=== PATIENT | male | born 1945 | race Caucasian/White ===

== ENCOUNTER 2024-05-21 12:25 | Emergency (ER) | payer OTHER ==
[2024-05-21] MEDS ORDERED: Sodium Chloride 0.9% 10 ML Syringe FLUSH PRN (13:05)
[2024-05-21 13:19] LABS: EOSINOPHILS ABSOLUTE AUTO 0.02 K/uL (0.00-0.50); EOSINOPHILS PERCENT AUTO 0.2 % (0.0-5.0); HEMATOCRIT 26.6 % (39.0-49.0); LYMPHOCYTES ABSOLUTE AUTO 0.38 K/uL (0.50-3.50); LYMPHOCYTES PERCENT AUTO 4.6 % (10.0-50.0); MEAN CORPUSCULAR HEMOGLOBIN 30.6 pg (28.2-33.3); MEAN CORPUSCULAR HGB CONC 33.8 g/dL (31.7-36.0); MEAN CORPUSCULAR VOLUME 90.5 fL (84.0-98.0); MONOCYTES ABSOLUTE AUTO 0.55 K/uL (0.00-1.00); MONOCYTES PERCENT AUTO 6.6 % (2.0-14.0); NEUTROPHILS ABSOLUTE AUTO 7.34 K/uL (1.40-7.00); NEUTROPHILS PERCENT AUTO 88.6 % (45.0-80.0); PLATELET COUNT,PLT 273 K/uL (150-350); RED BLOOD CELL COUNT 2.94 M/uL (4.33-5.41); RED CELL DISTRIBUTION WIDTH 15.1 % (11.2-14.1); WHITE BLOOD CELL COUNT,WBC 8.3 K/uL (4.0-10.2)
[2024-05-21 13:35] VITALS: BP 153/82; PULSE 66
[2024-05-21 13:40] LABS: INR 1.8 (0.9-1.1); PROTHROMBIN TIME 17.1 SEC (9.0-11.1)
[2024-05-21 13:43] LABS: LACTIC ACID 0.6 mmol/L (0.4-2.0)
[2024-05-21 13:57] LABS: ALBUMIN 2.5 g/dL (3.4-5.0); ANION GAP 9.4 meq/L (7-15); BILIRUBIN TOTAL 0.4 mg/dL (0.2-1.0); C-REACTIVE PROTEIN 10.99 mg/dL (0.05-0.30); CALCIUM 8.5 mg/dL (8.5-10.1); CARBON DIOXIDE,CO2 28.6 mmol/L (21.0-32.0); CREATININE 1.72 mg/dL (0.51-1.17); EST CRCL DRUG DOSING (CG) 39.83 mL/min; MAGNESIUM 1.5 mg/dL (1.8-2.4); POTASSIUM,K 3.5 mmol/L (3.5-5.1); PROTEIN TOTAL,TP 6.3 g/dL (6.4-8.2)
[2024-05-21] MEDS: 50% Dextrose in Water 50 ML Syringe IV ONE (14:21)
[2024-05-21] MEDS ORDERED: Naloxone 0.4 MG/ML SDV IVPUSH PRN (14:28)
[2024-05-21] MEDS: Gabapentin 300 MG Cap PO ONE (14:40)
[2024-05-21] MEDS: fentaNYL 50 MCG/ML SDV IVPUSH ONE (14:41)
[2024-05-21] MEDS: Magnesium Sulfate/Water 2 GM in Premix Bag 1 BAG IV ONE (15:01)
== END 2024-05-21 18:41 ==
LOC: EDBD 12:25 → LL.ED 12:25
DX: K52.9 Noninfective gastroenteritis and colitis, unspecified (principal); R53.83 Other fatigue; Z73.6 Limitation of activities due to disability; Z79.899 Other long term (current) drug therapy
CPT/HCPCS: 36415; 80053; 82947; 83605; 83735; 83880; 84484; 85025; 85610; 86140; 93005; 96365; 96366; 96375; 99285-25; A9270-GY; J3010; J3475; J3490

== ENCOUNTER 2024-05-29 23:33 | Emergency (ER) | payer OTHER ==
[2024-05-29] MEDS ORDERED: Sodium Chloride 0.9% 10 ML Syringe FLUSH PRN (23:51)
[2024-05-29] MEDS: Sodium Chloride 0.9% 1,000 ML IV ONE (23:57)
[2024-05-30 00:08] LABS: BASOPHILS ABSOLUTE AUTO 0.01 K/uL (0.00-0.20); BASOPHILS PERCENT AUTO 0.1 % (0.0-2.0); EOSINOPHILS PERCENT AUTO 1.1 % (0.0-5.0); LYMPHOCYTES ABSOLUTE AUTO 0.61 K/uL (0.50-3.50); LYMPHOCYTES PERCENT AUTO 6.5 % (10.0-50.0); MEAN CORPUSCULAR HEMOGLOBIN 30.9 pg (28.2-33.3); MEAN CORPUSCULAR HGB CONC 32.5 g/dL (31.7-36.0); MEAN CORPUSCULAR VOLUME 95.1 fL (84.0-98.0); MONOCYTES ABSOLUTE AUTO 0.99 K/uL (0.00-1.00); MONOCYTES PERCENT AUTO 10.6 % (2.0-14.0); NEUTROPHILS ABSOLUTE AUTO 7.63 K/uL (1.40-7.00); NEUTROPHILS PERCENT AUTO 81.7 % (45.0-80.0); PLATELET COUNT,PLT 115 K/uL (150-350); RED BLOOD CELL COUNT 2.43 M/uL (4.33-5.41); WHITE BLOOD CELL COUNT,WBC 9.3 K/uL (4.0-10.2)
[2024-05-30 00:17] LABS: HEMATOCRIT 23.1 % (39.0-49.0); HEMOGLOBIN 7.5 g/dL (13.1-16.8)
[2024-05-30 00:32] LABS: ALBUMIN 2.3 g/dL (3.4-5.0); ANION GAP 7.6 meq/L (7-15); BILIRUBIN TOTAL 0.6 mg/dL (0.2-1.0); C-REACTIVE PROTEIN 10.02 mg/dL (0.05-0.30); CALCIUM 7.7 mg/dL (8.5-10.1); CARBON DIOXIDE,CO2 28.4 mmol/L (21.0-32.0); MAGNESIUM 1.9 mg/dL (1.8-2.4); POTASSIUM,K 3.8 mmol/L (3.5-5.1); PROTEIN TOTAL,TP 5.5 g/dL (6.4-8.2)
[2024-05-30 00:59] LABS: CREATININE 3.21 mg/dL (0.51-1.17); EST CRCL DRUG DOSING (CG) 22.05 mL/min
[2024-05-30] MEDS: Sodium Chloride 0.9% 1,000 ML IV ONE (01:06)
== END 2024-05-30 04:30 ==
LOC: LL.ED 23:33
DX: R19.7 Diarrhea, unspecified (principal); E86.0 Dehydration; N17.9 Acute kidney failure, unspecified; I10 Essential (primary) hypertension; E11.9 Type 2 diabetes mellitus without complications; E66.9 Obesity, unspecified; Z90.49 Acquired absence of other specified parts of digestive tract; Z79.899 Other long term (current) drug therapy; Z68.30 Body mass index [BMI] 30.0-30.9, adult
CPT/HCPCS: 36415; 71045; 74018; 80053; 82140; 82947; 83605; 83735; 83880; 85025; 86140; 87040; 93005; 96360; 96361; 99285; J7030; 93010; 99284